=== PATIENT | female | born 1995 | race African-American/Black ===

== ENCOUNTER 2025-04-30 14:13 | Outpatient (CLI) | payer OTHER, SELFPAY ==
--- OUTSIDE RECORDS SUMMARY | 2025-04-30 14:23 | XMS_ITS | Encounter Summary ---
Author Organization [facility] Address [facility] [place] [address] Care Team Providers Care Painting Manager Name Role Phone Aparna Bailey Primary Care Provider Unav Judy Bravo MD Primary Care Provider [phone] Encounter Details Date Type Department Care Team (Late st Contact Info) Description 01/11/2020 [employer] [facility] Patient Accounts [address] [place] [address] [facility] Social History Tobacco Use Types Packs/Day Years Used Date Smoking Tobacco: Never Smokeless Tobacco: Never Alcohol Use Standard Drinks/Week Comments No 0 (1 standard drink = 0.6 oz pur e alcohol) AUDIT-C Answer Date Recorded Frequency of Alcohol Consumption Never 01/10/2019 Average Number of Drinks Not on file 019 Frequency of Binge Drinking Not on file 12/17 Comments Unknown Sex and Gender Information Value Date Recorded Sex Assigned at Female 04/04/2025 3:37 PM CDT Legal Sex Female 4:46 PM CDT Gender Identity Not on file Sexual Orientation Not on file documented as of this encounter Plan of Treatment Not on file documented as of this encounter Visit Diagnoses Not on filedocumented in this encounter Care Teams Painting Manager Relationship Specialty Start Date End Date Aparna Bailey FNP-BC PCP - General NURSE PRACTITIONER 12/26/18 01/08/21 Judy Mccoy MD [facility] [place] [address] PCP - General FAMILY PRACTICE 01/09/21 documented as of this encounter
--- OUTSIDE RECORDS SUMMARY | 2025-04-30 14:24 | XMS_ITS | Encounter Summary ---
Author Organization [facility] Address [address] [place] [address] Care Team Providers Care Certified Green Building Engineer Name Role Phone Judy Mccoy MD Primary Care Provider [phone] Encounter Details Date Type Department Care Team (Latest Contact Info) Description 04/04/2025 Results Follow-Up [facility] Medical [facility] Family Medicine [facility] [address] [place] [address] Judy Mccoy MD [address] [place] [address] COMPREHENSIVE METABOLIC PANEL, LIPID PANEL Social History Tobacco Use Types Packs/Day Years Used Date Smoking Tobacco: Never Smokeless Tobacco: Never Alcohol Use Standard Drinks/Week Comments No 0 (1 standard drink = 0.6 oz pur e alcohol) AUDIT-C Answer Date Recorded Frequency of Alcohol Consumption Never 01/10/2019 Average Number of Drinks Not on file 019 Frequency of Binge Drinking Not on file 12/17 PHQ-2 Answer Date Recorded Patient Health Questionnaire-2 Score 0 04/04/2025 Comments No Sex and Gender Information Value Date Recorded Sex Assigned at Female 04/04/2025 3:37 PM CDT Legal Sex Female 4:46 PM CDT Gender Identity Not on file Sexual Orientation Not on file documented as of this encounter Functional Status * Over the past 2 weeks, how often have you been bothered by any of the following problems? Question Answer Date of Assessment Author Status Little interest or pleasure in doing things Not at all 04/04/2025 3:36 PM CDT Jennifer Vizcarra MA Active Feeling down, depressed, or hopeless Not at all 04/04/2025 3:36 PM CDT Jennifer Vizcarra MA Activ e Patient Health Questionnaire-2 Score 0 04/04/2025 3:36 PM CDT Jennifer Vizcarra MA Active * Question Answer Date of Assessment Author Status Trouble falling or staying asleep, or sleeping too much Not at all 04/04/2025 3:36 PM CDT Judy Mccoy MD Active Feeling tired or having little energy Not at all 04/04/2025 3:36 PM CDT Judy Mccoy MD Active Poor appetite or overeating Not at all 04/04/2025 3:36 PM CDT Judy Mccoy MD Active Feeling bad about yourself - or that you are a failure or have let yourself or your family down Not at all 04/04/2025 3:36 PM CDT Judy Mccoy MD Active Trouble concentrating on things, such as reading the newspaper or watching television Not at all 04/04/2025 3:36 PM CDT Judy Mccoy MD Active Moving or speaking so slowly that other people could have noticed? Or the opposite - being so fidgety or restless that you have been moving around a lot more than usual. Not at all 04/04/2025 3:36 PM BOBYT Judy Mccoy MD Active Thoughts that you would be better off or hurting yourself in some way Not at all 04/04/2025 3:36 PM BOBYT Judy Mccoy MD Ac tive Patient Health Questionnaire-9 Score 0 04/04/2025 3:36 PM BOBYT Judy Mccoy MD A ctive * If you checked off any problems on this questionnaire so far, Question Answer Date of Assessment Author Status How difficult have these problems made it for you to do your work, take care of things at home, or get along with other people? Not difficult at all 04/04/2025 3:36 PM BOBYT Judy Mccoy MD Active * Over the last 2 weeks, how often have you been bothered by any of the following problems? Question Answer Date of Assessment Author Status Feeling nervous, anxious, or on edge 0 04/04/2025 4:12 PM CDT Judy Mccoy MD Active Not being able to stop or control worrying 0 04/04/2025 4:12 PM CDT Judy Mccoy MD Active Worrying too much about different things 0 04/04/2025 4:12 PM CDT Judy Mccoy MD Active Trouble relaxing 0 04/04/2025 4:12 PM CDT Judy Mccoy MD Active Being so restless that it is hard to sit still 0 04/04/2025 4:12 PM CDT Judy Mccoy MD Activ e Becoming easily annoyed or irritable 0 04/04/2025 4:12 PM CDT Judy Mccoy MD Active Feeling afraid as if something awful might happen 0 04/04/2025 4:12 PM CDT Neto Mccoy MD Active BRIAN-7 Total Score 0 04/04/2025 4:12 PM CDT Judy Mccoy MD Active documented as of this encounter Plan of Treatment Not on file documented as of this encounter Visit Diagnoses Not on filedocumented in this encounter Additional Health Concerns Assessment Noted Time PHQ-9 Depression Total Score: 0 04/04/20 25 3:36 PM CDT documented as of this encounter Care Teams Certified Green Building Engineer Relationship Specialty Start Date End Date Judy Mccoy MD [address] [place] [address] PCP - General FAMILY PRACTICE 01/09/21 documented as of this encounter
--- OUTSIDE RECORDS SUMMARY | 2025-04-30 14:24 | XMS_ITS | Encounter Summary ---
Author Organization [facility] Address [facility] [place] [address] Care Team Providers Care Varnish Blender Name Role Phone Judy Mccoy MD Primary Care Provider [phone] Encounter Details Date Type Department Care Team (Late st Contact Info) Description 04/15/2025 Results Follow-Up [facility] Medical [facility] Family Medicine [facility] [address] [place] [address] Judy Mccoy MD [address] [place] [address] A1C (BACK OFFICE), TB INTRADERMAL TEST (BACK OFFICE) Social History Tobacco Use Types Packs/Day Years [...] on file documented as of this encounter Progress Notes * Judy cMcoy MD - 04/15/2025 2:57 PM CDT Fay Coelho, Your most recent PPD resulted as follows: NEGATIVE. This is good news. Any questions or concerns please feel free to call the office at [phone]. Have a blessed day, ~Dr Mccoy documented in this encounter Plan of Treatment Not on file documented as of this encounter Visit Diagnoses Not on filedocumented in this encounter Additional Health Concerns Assessment Noted Time PHQ-9 Depression Total Score: 0 04/04/20 25 3:36 PM CDT documented as of this encounter Care Teams Varnish Blender Relationship Specialty Start Date End Date Judy Mccoy MD [facility] [place] [address] PCP - General FAMILY PRACTICE 01/09/21 documented as of this encounter
--- OUTSIDE RECORDS SUMMARY | 2025-04-30 14:24 | XMS_ITS | Referral Summary ---
Author Organization [facility] Address [address] [place] [address] Care Team Providers Care Condenser Setter Name Role Phone Judy Mccoy MD Primary Care Provider Allergies No known active allergies Medications meloxicam (MOBIC) 7.5 mg tabletIndication s:acute pain Take 1 tablet (7.5 mg total) by mouth every 12 (twelve) hours as needed for pain 15 tablet 11/05/2023 Active orphenadrine ER (NORFLEX) 100 mg 12 hr tabletIndication s:Muscle Spasm Take 1 tablet (100 mg total) by mouth 2 (two) times a day 15 tablet 11/05/2023 Active Social History Tobacco Use Types Packs/Day Years Used Date Smoking Tobacco: Never Assessed Personal Safety Answer Date Recorded Have you ever been in or are you currently in a harmful physical or emotional relationship or is someone making you feel afraid or unsafe? Denies 06/01/2024 Comments No Sex and Gender Information Value Date Recorded Sex Assigned at Not on file Legal Sex Female 1:06 PM CHAIN SAW MECHANIC Gender Identity Not on file Sexual Orientation Not on file Last Filed Vital Signs Vital Sign Reading Time Taken Comments Blood Pressure 126/70 06/01/2024 8:09 PM CDT Pulse 65 06/01/2024 8:09 PM CDT Temperature 36.6 C (97.9 F) 06/01/2024 8:09 PM CDT Respiratory Rate 18 06/01/2024 8:09 PM CDT Oxygen Saturation 100% 06/01/2024 8:09 PM CDT Inhaled Oxygen Concentration - - Weight 125.6 kg (276 lb 14.4 oz) 06/01/2024 5:08 PM CDT Height 177.8 cm (5' 10) 06/01/2024 5:08 PM CDT Body Mass Index 39.73 06/01/2024 5:08 PM CDT Plan of Treatment Not on file Insurance [facility] CHOICE PLUS MRA CHOICE PLUS Care Teams Condenser Setter Relationship Specialty Start Date End Date Judy Mccoy MD [address] [facility] [place] [address] PCP - General Family Practice 11/05/23
--- OUTSIDE RECORDS SUMMARY | 2025-04-30 14:24 | XMS_ITS | Clinical Summary ---
Author Organization [facility] Address [address] [place] [address] Care Team Providers Care Steam Drier Operator Name Role Phone Judy Mccoy MD Primary [...] on file Legal Sex Female 1:06 PM TALENT ACQUISITION COORDINATOR Gender Identity Not on file Sexual Orientation [...] 06/01/2024 5:08 PM CDT Plan of Treatment Health Maintenance Due Date Last Done Comments Cervical Cancer Screening 1995 Depression Screening 1995 Hepatitis C Screening 1995 Regular Well Visit/Exam 18-64 2013 Pneumococcal vaccine <65 (1 of 2 - PCV) 2014 DTaP/Tdap/Td Vaccine (7 - Td or Tdap) 05/15/2019 05/15/2009, 04/16/1999, 04/16/1999, Additional history exists Influenza Vaccine (Season Ended) 2025 10/30/19, 09/04/2014 Hepatitis B Screening Completed 1995 , 1995, 1995, Additional history exists Varicella Vaccines Completed 05/13/2010, 0 05/15/2009, 04/16/1999, Additional history exists HPV Vaccines Completed 05/27/2012, 04/18, 05/15/2009 Insurance [facility] CHOICE PLUS [facility] HMO/PPO Address: [facility] [address] [place] [address] MRA [facility] CHOICE PLUS [facility] HMO/PPO [place]: [place] [address] Care Teams Steam Drier Operator Relationship Specialty Start Date End Date Judy Mccoy MD [address] [facility] [place] [address] PCP - General Family Practice 11/05/23
--- OUTSIDE RECORDS SUMMARY | 2025-04-30 14:24 | XMS_ITS | Clinical Summary ---
Author Organization [facility] Address [facility] [place] [address] Care Team Providers Care Beverage Inspection Machine Tender Name Role Phone Judy Mccoy MD Primary Care Provider [phone] Allergies No known active allergies Medications albuterol sulfate HFA 108 (90 Base) MCG/ACT inhalerIndicatio ns:Mild intermittent asthma without complication (HHS/HCC) Inhale 1-2 puffs into the lungs every 6 (six) hours as needed. 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 48 g 1 04/26/20 25 Active naltrexone-buPRO Pion ER (CONTRAVE) 12 hr tabletIndication s:Morbid obesity with BMI of 40.0-44.9, adult (CMS/HCC) Take 1 tab PO QD x 7 days, then Take 1 tab PO BID x 7days, then Take 2 tabs Po QAM and 1 Tab PO QPM x 7days then Take 2 tabs Po BID 120 tablet 1 07/05/20 24 025 Discontinued fluticasone propionate (FLONASE) 50 MCG/ACT nasal sprayIndications :Seasonal allergies SHAKE LIQUID AND USE 2 SPRAYS IN EACH NOSTRIL DAILY NEEDED FOR RHINITIS 16 g 2 02/15/20 25 025 Discontinued(Re order) Active Problems Problem Noted Date Diagnosed Date Asthma ([facility]) 06/28/2018 Chronic deep vein thrombosis (DVT) ([facility]) 06/28/2018 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 Seasonal allergies 06/28/2018 Thyromegaly 06/28/2018 Left leg DVT ([facility]) 04/03/2014 Resolved Problems Problem Noted Date Diagnosed Date Resolved Date Bilateral impacted cerumen 06/28/2018 0 01/10/2019 Encounter for preventive health examination 06/28/2018 06/28/2020 Acute pulmonary embolism ([facility]) 04/03/2014 08/04/2019 Encounters Date Type Department Care Team Description 04/18/[address] [address] Judy Mccoy MD Medication Problem 04/16/2025 Scan [employer] SRVCS Scanned, [facility] 04/15/2025 Results Follow-Up [address] [address] Judy Mccoy MD A1C (BACK OFFICE), TB INTRADERMAL TEST (BACK OFFICE) 04/14/2025 Scan [email or web address] INFO SRVCS Scanned, [facility] 04/06/2025 3:40 PM CDT Allied Health/Nurse Visit [address] [address] Judy Mccoy MD PPD 04/06/2025 Travel 04/04/2025 3:20 PM CDT Office Visit [address] [address] Judy Mccoy MD Prediabetes; Obesity; Hyperlipidemia; Forms (For work- PPD needed ) 04/04/2025 Results Follow-Up [facility] Medical Group Family Medicine [facility] [address] [place] [address] Judy Mccoy MD COMPREHENSIVE METABOLIC PANEL, LIPID PANEL 04/04/2025 Travel from Last 3 Months Immunizations Immunization Administration Dates Next Due Dtap 04/16/1999,06/27/1996 Dtap (Generic) 04/16/1999, 6,1995,1995 ,1995 Dtp/Hib 1995,1995,1995 HPV 05/27/2012,05/13/2010,05/15/2009 Hepatitis A Vaccine - 2 Dose 11/28/2012,05/27/20 12 Hepatitis B 1995,1995,1995 Hepatitis B (Generic: Adult) 1995,08/24/19 95,1995 Hib 06/27/1996 Hib Vaccine, Prp-Omp 06/27/1996,1995,08/24,1995 Influenza (Generic) 10/30/2021,09/04/2014 MMR 04/16/1999,1996 MMR (Generic) 04/16/1999,1996 Menactra 08/04/2013 Meningococcal Vac A,C,Y,W-135 Sc 08/04/2013,04/18 Opv 04/16/1999,1995,1995 ,1995 Polio Ipv (Generic) 04/16/1999,1995,1994,1995 Tdap (Adacel) 07/05/2024 Tdap (Generic) 05/15/2009 Varicella Vaccine 05/13/2010,05/15/2009 Family History Medical History Relation Comments pulmonary embolism Father Asthma Mother Relation Status Comments Brother Alive Father Alive Mother Alive Sister Alive Social History Tobacco Use Types Packs/Day Years Used Date Smoking Tobacco: Never Smokeless Tobacco: Never Tobacco Cessation:Counseling Given: Not Answered Alcohol Use Standard Drinks/Week Comments No 0 [...] Sign Reading Time Taken Comments Blood Pressure 113/67 04/04/2025 3:37 PM CDT Pulse 75 04/04/2025 3:37 PM CDT Temperature 36.1 C (97 F) 04/04/2025 3:37 PM CDT Respiratory Rate 12 04/04/2025 3:37 PM CDT Oxygen Saturation 100% 04/04/2025 3:37 PM CDT Inhaled Oxygen Concentration - - Weight 125.9 kg (277 lb 9.6 oz) 04/04/2025 3:37 PM CDT Height 173.7 cm (5' 8.39) 04/04/2025 3:37 PM CD T verbal Body Mass Index 41.73 04/04/2025 3:37 PM CDT Plan of Treatment Health Maintenance Due Date Last Done Comments Cervical Cancer Screening Pap Smear (Age 30 to 64) Every 3 Years 1995 COVID-19 Vaccine ( season) 2024 10/22/2021, 02/18/2021, 01/27/2021 Annual Physical 09/15/2024 09/15/2023, 03/06/2020 Cervical Cancer Screening Pap with HPV Testing (Age 30 to 64) Every 5 Years 2025 Cervical Cancer Screening with HPV 2025 Pneumococcal Vaccine: Pediatrics (0 to 5 Years) and At-Risk Patients (6 to 49 Years) (1 of 2 - PCV) 06/18/2025 Postponed from 2014 (Patient Refused) DTaP, Tdap and Td Vaccines (8 - Td or Tdap) 07/05/2034 07/05/2024, 05/15/2009, 04/16/1999, Additional history exists Hepatitis B Vaccines Completed 1995, 1995, 1995, Additional history exists HPV Vaccines Completed 05/27/2012, 04/18, 05/15/2009 Meningococcal Vaccine Aged Out 08/04/2013 , 08/04/2013, 05/15/2009 No longer eligible based on patient's age to complete this topic Hepatitis C Completed 07/04/2024 PHQ-2 (Physician [place]) Completed 04/04/2025 Meningococcal B Vaccine Aged Out No l onger eligible based on patient's age to complete this topic RSV Immunizations Under 20 Months Aged Out No longer eligible based on patient's age to complete this topic Procedures Procedure Name Priority Date/Time Associated Diagnosis Comments TB INTRADERMAL TEST (BACK OFFICE) Routine 04/04/2025 4:15 PM CDT Screening-pulmonary TB HEMOGLOBIN, GLYCOSYLATED Routine 04/04/2025 Prediabetes COLLECT.CAPILLARY (FNGR,HEEL,EAR) Routine 04/04/2025 Prediabetes LIPID PANEL Routine 04/02/2025 3:00 PM CDT Morbid obesity with BMI of 40.0-44.9, adult (CMS/HCC) Hyperlipidemia, unspecified hyperlipidemia type COMPREHENSIVE METABOLIC PANEL Routine 04/02/2025 3:00 PM CDT Prediabetes Morbid obesity with BMI of 40.0-44.9, adult (CMS/HCC) Hyperlipidemia, unspecified hyperlipidemia type HEPATITIS C ANTIBODY Routine 07/04/2024 3:41 PM CDT Encounter for hepatitis C screening test for low risk patient from Last 3 Months or Most Recently Relevant to Health Maintenance Results * TB INTRADERMAL TEST (BACK OFFICE) (04/04/2025 4:15 PM CDT) MM INDURATION 0 PPD SKIN TEST 0 NOT REQUIRED 04/04/2025 4:15 PM CDT Judy Mccoy MD MICROBIOLOGY - GENERAL ORDERABLE S Final Result * A1C (BACK OFFICE) (04/04/2025) HGB A1C 5.4 % [facility] 04/04/2025 Judy Mccoy MD LABORATORY Final Result [facility] [address] [place] [address], * COLLECT.CAPILLARY (FNGR,HEEL,EAR) (04/04/2025) Judy Mccoy MD PROCEDURES-UNRESULTED Final Resu lt [facility] * (ABNORMAL) COMPREHENSIVE METABOLIC PANEL (04/02/2025 3:00 PM CDT) Pathologist [facility] GLUCOSE 83 65 - 99 mg/dL [place] [place] Comment: Fasting reference interval BUN 15 7 - 25 mg/dL [place], [place] CREATININE S/P/B 0.70 0.50 - 0.97 mg/dL [facility] [place] GFR ESTIMATE 119 > OR = 60 mL/min/1. 73m2 [place], [place] BUN CREATININE RATIO SEE NOTE: 6 - 22 (calc) [facility] [place] Comment: Not Reported: BUN and Creatinine are within reference range. SODIUM S/P/B 133(L) 135 - 146 mmol/L [place], [place] POTASSIUM S/P/B 4.1 3.5 - 5.3 mmol/L [place] [place] CHLORIDE S/P/B 101 98 - 110 mmol/L [place], [place] CO2 24 20 - 32 mmol/L [place] [place] CALCIUM S/P/B 8.8 8.6 - 10.2 mg/dL [place] [place] TOTAL PROTEIN S/P/B 7.3 6.1 - 8.1 g/dL [place], [place] ALBUMIN S/P/B 3.9 3.6 - 5.1 g/dL [place] [place] GLOBULIN 3.4 1.9 - 3.7 g/dL (calc) [place] [place] ALBUMIN/GLOBULIN RATIO 1.1 1.0 - 2.5 (calc) [place] [place] BILIRUBIN TOTAL S/P/B 0.5 0.2 - 1.2 mg/dL [place] [place] ALKALINE PHOSPHATASE S/P/B 58 31 - 125 U/L [place] [place] AST 20 10 - 30 U/L [place] [place] ALT 18 6 - 29 U/L [facility] [place] 04/02/2025 3:00 PM CDT 04/02/2025 3:03 PM CDT Narrative [facility] - 04/03/2025 3:43 AM CDT FASTING:NO FASTING: NO Resulting Agency Comment Performing Organization Information: Site ID: Name: [facility] Address: [address] [place] [id number] Director: Deana Rodriguez Judy Mccoy MD LABORATORY Final Result [facility] [address] [address] * (ABNORMAL) LIPID PANEL (04/02/2025 3:00 PM CDT) CHOLESTEROL 213(H) <200 mg/dL [place] [place] HDL 69 > OR = 50 mg/dL [place] [place] TRIGLYCERIDES 112 <150 mg/dL [place] [place] LDL (CALCULATED) 122(H) mg/dL (calc) [place] [place] Comment: Reference range: <100 Desirable range <100 mg/dL for primary prevention; <70 mg/dL for patients with CHD or diabetic patients with > or = 2 CHD risk factors. LDL-C is now calculated using the Maged calculation, which is a validated novel method providing better accuracy than the Friedewald equation in the estimation of LDL-C. Joni MANCINI et al. DAIJA. 2013;310(19): 4721-3736 (http://education.Mola.com.Tigerstripe/faq/TDP184) CHOL/HDL RATIO 3.1 <5.0 (calc) [place] [place] NON HDL CHOLESTEROL 144(H) <130 mg/dL (calc) [facility] [place] Comment: For patients with diabetes plus 1 major ASCVD risk factor, treating to a non-HDL-C goal of <100 mg/dL (LDL-C of <70 mg/dL) is considered a therapeutic option. 04/02/2025 3:00 PM CDT 04/02/2025 3:03 PM CDT Narrative [facility] - 04/03/2025 3:43 AM CDT FASTING:NO FASTING: NO Resulting Agency Comment Performing Organization Information: Site ID: [id number] Name: [facility] Address: [address] [place] [id number] Director: Deana Rodriguez Judy Mccoy MD LABORATORY Final Result [facility] [address] * HEPATITIS C ANTIBODY W/REFLEX (07/04/2024 3:41 PM CDT) HEPATITIS C AB NON-REACTI VE NON-REACTI VE 07/04/2024 7:00 PM CDT [facility] 07/04/2024 3:41 PM CDT Judy Mccoy MD LABORATORY Final Result [facility] [address] [place] [address], from Last 3 Months or Most Recently Relevant to Health [place] [address] [facility] Care Teams Beverage Inspection Machine Tender Relationship Specialty Start Date End Date Judy Mccoy MD [facility] [place] [address] PCP - General FAMILY PRACTICE 01/09/21
[2025-04-30 15:18] LABS: Thyroid Stimulating Hormone Reflex 0.996 uIU/mL (0.465-4.68)
== END 2025-04-30 14:14 | disposition home or self-care (01) ==
PROVIDERS: Visit Provider Obstetrics & Gynecology
DX: E04.9 Nontoxic goiter, unspecified (principal)
CPT/HCPCS: 36415; 84443